=== PATIENT | female | born 1950 | race Caucasian/White ===

== ENCOUNTER 2018-10-06 06:00 | Day surgery (SDC) | payer MEDICARE, BC ==
[2018-10-06] MEDS ORDERED: PROPOFOL 40 ML (08:05)
[2018-10-06] MEDS ORDERED: LIDOCAINE 100 MG SYRINGE (08:05)
== END 2018-10-06 16:14 | disposition home or self-care (01) ==
LOC: GIL 06:00
DX: Z12.11 Encounter for screening for malignant neoplasm of colon (principal); K57.30 Diverticulosis of large intestine without perforation or abscess without bleeding; K64.8 Other hemorrhoids
CPT/HCPCS: 45378